=== PATIENT | male | born 1975 | race Caucasian/White ===

== ENCOUNTER 2016-07-16 11:59 | Emergency (ER) | payer MEDICAID | END 2016-07-16 12:59 | disposition home or self-care (01) | LOC: FASTR 11:59 | DX: B00.9 Herpesviral infection, unspecified (principal); Z79.899 Other long term (current) drug therapy; F17.210 Nicotine dependence, cigarettes, uncomplicated ==

== ENCOUNTER 2016-07-23 17:17 | Emergency (ER) | payer MEDICAID | END 2016-07-23 19:18 | disposition home or self-care (01) | LOC: ER 17:17 | DX: A60.01 Herpesviral infection of penis (principal); Z79.899 Other long term (current) drug therapy; F17.210 Nicotine dependence, cigarettes, uncomplicated ==